=== PATIENT | female | born 1930 | race Caucasian/White ===

== ENCOUNTER 2016-10-12 10:35 | Inpatient (IN) | payer OTHER ==
[~2016-10-12] VITALS: Ht 165.1 cm; Wt 72.6 kg
[~2016-10-12 10:35] MED LIST: AMBIEN5 MG PO; BONIVA150 MG PO; DEPAKOTE ER250 MG PO; DEPAKOTE ER500 MG PO; DEPAKOTE250 MG PO; DESYREL50 MG PO; DIOVAN HCT 12.51 TA1 PO; DIPHENOX/ATROPI1 TAB PO; EFFEXOR PO; EFFEXOR XR75 MG PO; EFFEXOR-XR37.5 MG PO; LASIX20 MG PO; MELATONIN CR3 MG PO; MELATONIN3 MG PO; METOPROLOL SUCC25 M1 PO; PIPERACILLIN IV; PRADAXA150 MG PO; PROAIR HFA0.09 MG/Ac IH; SEROQUEL200 MG PO; TAZOBACTAM IV; TOPROL XL25 MG PO; VENLAFAXINE H37.5 M1 PO; VENLAFAXINE HCL75 M1 PO; VESICARE5 MG PO; ZOLPIDEM TART PO; [UNRECOGNIZED DRUG - REMARK]
--- NOTE | 2016-10-12 10:54 | NUR ---
Patient BIBA to bed 8 at this time.
[2016-10-12 10:55] VITALS: BP 152/64
--- NOTE | 2016-10-12 11:00 | NUR ---
.PT BIB EMS FROM [facility] FOR DIARRHEA AND PAINFUL URINATION.PER EMS PT IS HAVING DIARRHEA FOR 5 DAYS;PT STATES SHE FEELS NAUSEATED BUT DENIES ANY VOMITTING;PT IS AAOX3;SKIN IS INTACT;HX OF CHF,HTN AND ALZHEIMERS DZ;C/O OF CP THAT STATRTED A FEW MINUTES AGO;NO SOB/UNLABORED BREATHING O2 SAT OF 97 %;NO ACUTE DISTRESS NOTED AT THIS TIME;HOB ELEAVTED;NEEDS ATTENDED;SAFETY MEASURES DONE;MD MADE AWARE OF PT'S CONDITION.
[2016-10-12] MEDS ORDERED: DITROPAN5 MG PO (11:08)
[2016-10-12] MEDS ORDERED: EVISTA60 MG PO (11:08)
[2016-10-12] MEDS ORDERED: DESYREL50 MG PO (11:08)
[2016-10-12] MEDS ORDERED: VASOTEC10 MG PO (11:08)
[2016-10-12] MEDS ORDERED: ACCOLATE20 M1 PO (11:08)
[2016-10-12] MEDS ORDERED: CLARITIN10 MG PO (11:08)
[2016-10-12] MEDS ORDERED: NACL 0.9% 500 ML IV SCH (11:22)
[2016-10-12] MEDS ORDERED: LEVOFLOXACIN 750 MG/D5W PREMIX 150 ML IV ONE (11:25)
--- NOTE | 2016-10-12 11:30 | NUR ---
DR PARKER AT BEDSIDE
--- NOTE | 2016-10-12 12:00 | NUR ---
TUYERE FITTER AT BEDSIDE
--- NOTE | 2016-10-12 13:03 | NUR ---
PT LYING ON BED COMFORTABLY;NO ACUTE DISTRESS NOTED AT THIS TIME ;WILL CONTINUE TO MONITOR PT.
--- NOTE | 2016-10-12 13:44 | NUR ---
BACK FROM CT SCAN; NO ACUTE DISTRESS NOTED AT THIS TIME;ALL MONITORS PLACED IN.WILL CONTINUE TO MONITOR PT.
[2016-10-12] MEDS ORDERED: NACL 0.9% 1,000 ML IV ONE (13:45)
[2016-10-12] MEDS ORDERED: ACETAMINOPHEN 325 MG TAB PO PRN (14:20)
[2016-10-12] MEDS: NACL 0.9% 1,000 ML IV SCH (14:20)
[2016-10-12] MEDS ORDERED: MORPHINE SULFATE 2 MG/ML SYR IVP PRN (14:20)
[2016-10-12] MEDS ORDERED: LORazepam 2 MG/ML VIAL IVP PRN (14:20)
[2016-10-12] MEDS ORDERED: ONDANSETRON 4 MG/2 ML VIAL IVP PRN (14:20)
[2016-10-12] MEDS ORDERED: ALBUTEROL 0.083% 2.5 MG/3 ML NEBU INH PRN (14:25)
--- NOTE | 2016-10-12 14:25 | NUR ---
Patient will be admitted to care of DR GUERRA . Admited to M/S. Will go to room 108 B. Belongings list completed. Report to JAYESH TRIPP.
--- NOTE | 2016-10-12 14:33 | NUR ---
US AT BEDSIDE
--- NOTE | 2016-10-12 14:43 | NUR ---
.9 NS I L WAS NOT ADMINISTERED BECAUSE LEVAQUIN IVPB WAS STARTED AT 1220 AND WAS DONE AT 14OO. 5OO ML NS IS STILL INFUSING. I GAVE REPORT TO JAYESH TRIPP IN MS FOR ADMISSION.
--- NOTE | 2016-10-12 15:15 | NUR ---
ADMITTED 85 YEAR OLD FEMALE FROM ER VIA [facility] WITH A DIAGNOSIS OF UTI, DEHYDRATION. PT IS ABLE TO MOVE FROM GURNEY TO BED, AMBULATE WITH THE USE OF WALKER. PT IS AAO X3, ABLE TO RESPOND TO SIMPLE QUESTIONS, O2 2L NC, SKIN INTACT, IV ON RIGHT AC 22G PATENT AND INTACT INFUSING FLUID WELL, VITALS STABLE, NO S/S OF RESPIRATORY DISTRESS OR DISCOMFORT NOTED, ALL NEEDS MET AT THIS TIME, MRSA COLLECTED, ORIENTED PT IN THE ROOM AND USE OF CALL LIGHT, SAFETY/FALL PRECAUTION ENFORCED, CALL LIGHT WITHIN REACH, WILL CONTINUE TO MONITOR.
[2016-10-12 16:00] VITALS: BP 120/60
--- NOTE | 2016-10-12 17:47 | NUR ---
DINNER SERVED, PT HAS GOOD APPETITE, ALL NEEDS MET AT THIS TIME, CALL LIGHT WITHIN REACH, WILL CONTINUE TO MONITOR.
--- NOTE | 2016-10-12 19:21 | NUR ---
ENDORSED PT TO MAHOGANY HOLLOWAY FOR CONTINUITY OF CARE. PT IS STABLE AT THIS TIME.
--- NOTE | 2016-10-12 19:22 | NUR ---
RECD. RESTING IN BED, AWAKE, A/OX3. RESPIRATION EVEN AND UNLABORED. 02 SAT SAT ROOM AIR, 95%. IV OF NS AT 100 ML/HR INFUSING RIGHT AC G.22. SAFETY MEASURES ENFORCED. PLAN OF CARE FOR THE SHIFT DISCUSSED. INSTRUCTED TO CALL NURSE WHEN NEEDING ANYTHING TO PREVENT FALLS. VERBALIZED UNDERSTANDING. DENIES PAIN 0/10.
--- NOTE | 2016-10-12 19:30 | NUR ---
Patient's Plan of Care was discussed and reviewed with DIRECTOR DENTAL SERVICES: JEWEL Aguilar
[2016-10-12] MEDS: DABIGATRAN ETEXILATE MESYLAT 75 MG CAP PO SCH (21:00)
[2016-10-12] MEDS: traZODone 50 MG TAB PO SCH (21:11)
[2016-10-12] MEDS: DIVALPROEX 500 MG TABER PO SCH (21:11)
[2016-10-12] MEDS: OXYBUTYNIN 5 MG TAB PO SCH (21:11)
[2016-10-12] MEDS: QUEtiapine FUMARATE 100 MG TAB PO SCH (21:11)
--- NOTE | 2016-10-12 21:11 | NUR ---
DUE PO MEDICATIONS GIVEN, TOLERATED WELL.
[2016-10-13] VITALS: BP 108/54
--- NOTE | 2016-10-13 | NUR ---
SLEEPING COMFORTABLY IN BED.
[2016-10-13] MEDS: NACL 0.9% 1,000 ML IV SCH ×3 (00:20→20:56)
--- NOTE | 2016-10-13 02:00 | NUR ---
ASSISTED OUT OF BED TO GO SHIMA BSC TO VOID, BACK TO BED AFTER VOIDING. SAFETY MAINTAINED.
--- NOTE | 2016-10-13 04:00 | NUR ---
ASSISTED OUT OF BED TO GO BSC, ASSISTED BY CONTACT CENTER REPRESENTATIVE. BACK TO BED AFTER VOIDING, SAFETY MAINTAINED. NO DIARRHEA NOTED.
--- NOTE | 2016-10-13 05:00 | NUR ---
BILATERAL LEG SEQUENTIALS APPLIED ORDERED.
--- NOTE | 2016-10-13 06:30 | NUR ---
CONDITION REMAIN STABLE. SAFETY MAINTAINED DURING SHIFT. WILL ENDORSE TO AM NURSE FOR CONTINUITY OF CARE.
--- NOTE | 2016-10-13 07:10 | NUR ---
RECEIVED REPORT FROM NIGHT NURSE. PT IS RESTING IN BED. PT IS ON ROOM AIR. PT HAS A 22G IV ON THE RIGHT AC THAT IS PATENT AND INTACT. PT VERBALIZED PAIN AND WILL FOLLOW UP WITH MEDICATION. PT'S BED IS LOWERED WITH CALL LIGHT WITHIN REACH. WILL CONTINUE TO MONITOR.
--- NOTE | 2016-10-13 07:59 | NUR ---
PATIENT HAS BEEN SCREENED AND CATEGORIZED HIGH NUTRITION RISK. PATIENT WILL BE SEEN WITHIN 1-2 DAYS OF ADMISSION. 10/13/16-10/14/[address]
[2016-10-13 08:00] VITALS: BP 128/65
[2016-10-13] MEDS: HYDROcodone/APAP 5/325 MG 1 TAB TAB PO PRN (08:22)
[2016-10-13] MEDS: VALSARTAN 80 MG TAB PO SCH (08:22)
[2016-10-13] MEDS: HYDROCHLOROTHIAZIDE 25 MG TAB PO SCH (08:23)
[2016-10-13] MEDS: VENLAFAXINE 37.5 MG TAB PO SCH (08:23)
[2016-10-13] MEDS: LORATADINE 10 MG TAB PO SCH (08:23)
[2016-10-13] MEDS: METOPROLOL SUCCINATE 50 MG TABER PO SCH (08:23)
[2016-10-13] MEDS: RALOXIFENE 60 MG TAB PO SCH (08:24)
[2016-10-13] MEDS: ENALAPRIL 10 MG TAB PO SCH (08:24)
[2016-10-13] MEDS: OXYBUTYNIN 5 MG TAB PO SCH ×2 (08:24→20:48)
[2016-10-13] MEDS: FUROSEMIDE 20 MG TAB PO SCH (08:25)
[2016-10-13] MEDS ORDERED: NON-FORMULARY ITEM (Venlafaxine HCl* (Effexor Xr*) 1 CAP) PO SCH (09:00)
--- NOTE | 2016-10-13 09:10 | NUR ---
PT VERBALIZED THAT SHE HAS NO DIARRHEA. PT DENIES PAIN. WILL CONTINUE TO MONITOR.
[2016-10-13] MEDS: DABIGATRAN ETEXILATE MESYLAT 75 MG CAP PO SCH ×2 (09:33→20:52)
--- NOTE | 2016-10-13 12:44 | NUR ---
10/13/16 RD INITIAL ASSESSMENT COMPLETED PLEASE REFER TO NUTRITION ASSESSMENT UNDER CARE ACTIVITY FOR ESTIMATED NUTRITIONAL NEEDS. RD RECOMMENDATIONS: 1. CONTINUE CARDIAC DIET TOLERATED PER MD 2. ENCOURAGE ADEQUATE PO INTAKE 3. RD WILL F/U 3-5 DAYS; MODERATE RISK. ALFREDO HERNANDEZ, ROD
[2016-10-13 16:24] VITALS: BP 121/61
--- NOTE | 2016-10-13 19:00 | NUR ---
PT REPORT GIVEN AT BEDSIDE TO NIGHT NURSE. PT ENDORSED IN STABLE CONDITION.
--- NOTE | 2016-10-13 19:30 | NUR ---
RECEIVED REPORT FROM DAY RN AT BEDSIDE, PATIENT IS AAO X4, ON ROOM AIR, NO SOB OR SIGN OF DISTRESS AT THIS TIME, PATIENT HAS IV TO RIGHT AC PATENT AND INTACT. SKIN IS INTACT. PATIENT DENIES PAIN AT THIS TIME. DISCUSSED PLAN OF CARE WITH PATIENT, PATIENT VERBALIZED UNDERSTANDING, SAFETY MEASURES CHECKED, BED ALARM ON , CALL LIGHT WITHIN REACH. WILL CONTINUE TO MONITOR.
[2016-10-13] MEDS: traZODone 50 MG TAB PO SCH (20:47)
[2016-10-13] MEDS: DIVALPROEX 500 MG TABER PO SCH (20:47)
[2016-10-13] MEDS: QUEtiapine FUMARATE 100 MG TAB PO SCH (20:48)
--- NOTE | 2016-10-13 20:57 | NUR ---
PM MEDS ADMINISTERED PATIENT TOLERATED WELL. PATIENT TOOK MEDS WITH APPLESAUCE PER REQUEST, NO SOB OR SIGN OF DISTRESS AT THIS TIME, CALL LIGHT WITHIN REACH. WILL CONTINUE TO MONITOR.
[2016-10-13] MEDS ORDERED: MONTELUKAST SODIUM 10 MG TAB PO SCH (21:00)
[2016-10-14] VITALS: BP 101/56
--- NOTE | 2016-10-14 00:09 | NUR ---
VITAL SIGNS STABLE, NO SOB OR SIGN OF DISTRESS, ASSISTED PATIENT UP TO BEDSIDE COMMODE, CALL LIGHT WITHIN REACH. WILL CONTINUE TO MONITOR.
--- NOTE | 2016-10-14 02:20 | NUR ---
PATIENT SLEEPING, NO SOB OR SIGN OF DISTRESS AT THIS TIME, CALL LIGHT WITHIN REACH. WILL CONTINUE TO MONITOR.
[2016-10-14] MEDS: HYDROcodone/APAP 5/325 MG 1 TAB TAB PO PRN (03:51)
[2016-10-14] MEDS ORDERED: HYDROcodone/APAP 5/325 MG 1 TAB TAB ONE (03:52)
--- NOTE | 2016-10-14 04:09 | NUR ---
PATIENT C/O PAIN IN HER BACK, ADMINISTERED NORCO PER MD ORDER, ASSISTED PATIENT UP TO RESTROOM, CALL LIGHT WITHIN REACH. WILL CONTINUE TO MONITOR.
[2016-10-14] MEDS: NACL 0.9% 1,000 ML IV SCH ×2 (06:24→16:20)
--- NOTE | 2016-10-14 07:03 | NUR ---
RECEIVED REPORT FROM NIGHT NURSE. PT IS RESTING IN BED. PT IS ON ROOM AIR. PT HAS A 22G IV ON THE RIGHT AC THAT IS PATENT AND INTACT. PT VERBALIZED BACK PAIN AND WILL FOLLOW UP WITH MEDICATION. WILL ASSIST PT IN REPOSITIONING. PT'S BED IS LOWERED WITH CALL LIGHT WITHIN REACH. WILL CONTINUE TO MONITOR
--- NOTE | 2016-10-14 07:25 | NUR ---
ENDORSED PATIENT TO DAY RN AT BEDSIDE, PATIENT IN STABLE CONDITION.
[2016-10-14 07:39] VITALS: BP 128/53
--- NOTE | 2016-10-14 08:15 | NUR ---
ADMINISTERED SCHEDULED MEDICATIONS. PT TOLERATED WELL. NO S/S OF DISTRESS NOTED. PT HAS NO C/O PAIN AT THIS TIME. WILL CONTINUE TO MONITOR.
[2016-10-14] MEDS: METOPROLOL SUCCINATE 50 MG TABER PO SCH (08:23)
[2016-10-14] MEDS: LORATADINE 10 MG TAB PO SCH (08:23)
[2016-10-14] MEDS: VALSARTAN 80 MG TAB PO SCH (08:25)
[2016-10-14] MEDS: OXYBUTYNIN 5 MG TAB PO SCH (08:28)
[2016-10-14] MEDS: VENLAFAXINE 37.5 MG TAB PO SCH (08:28)
[2016-10-14] MEDS: FUROSEMIDE 20 MG TAB PO SCH (08:28)
[2016-10-14] MEDS: ENALAPRIL 10 MG TAB PO SCH (08:29)
[2016-10-14] MEDS: HYDROCHLOROTHIAZIDE 25 MG TAB PO SCH (08:30)
[2016-10-14] MEDS: RALOXIFENE 60 MG TAB PO SCH (08:30)
[2016-10-14] MEDS: DABIGATRAN ETEXILATE MESYLAT 75 MG CAP PO SCH (08:41)
--- NOTE | 2016-10-14 09:36 | NUR ---
CM NOTE INITIAL REVIEW SENT ON 10/13 TO [facility] FAX# [phone] PH# KEVIN [phone] AND [facility] FAX# [phone] PH# INES Deng [phone]. CONCURRENT REVIEW SENT TODAY 10/14 TO [facility] FAX# [phone] PH# KEVIN [phone] AND [facility] FAX# [phone] PH# INES Deng [phone].
--- NOTE | 2016-10-14 10:00 | NUR ---
PT AMB TO BEDSIDE COMMODE. PT VOIDED 100 ML OF URINE OUTPUT. PT IS RESTING IN BED. PT WAS TURNED IN BED. PT'S BED IS LOWERED AND CALL LIGHT IS WITHIN REACH. WILL CONTINUE TO MONITOR.
--- NOTE | 2016-10-14 12:20 | NUR ---
PT SEEN BY DR GUERRA. ORDERED PT EVAL.
--- NOTE | 2016-10-14 13:40 | NUR ---
SPOKE WITH PATIENT'S DAUGHTER JAMES AND INFORMED HER THAT PATIENT WILL BE TRANSFERRED BACK TO [facility] TODAY. DAUGHTER WAS ALSO INFORMED THAT THE DOCTOR WILL SEND THE PATIENT'S ABX PRESCRIPTION TO THE PATIENT'S PHARMACY. DAUGHTER STATES THAT SHE CAN GET THE PRESCRIPTION AT [facility] BY [facility].
--- NOTE | 2016-10-14 13:50 | NUR ---
PT IS IN BED RESTING. PT SHOWS NO S/S OF DISTRESS. WILL CONTINUE TO MONITOR.
--- NOTE | 2016-10-14 14:48 | NUR ---
REJI NOTE ORDER FOR HOME HEALTH FOR PHYSICAL THERAPY, ORAL ANTIBIOTIC AND PHYSICAL THERAPY EVAL SENT TO [facility] ATTN: INES LILLY FAX# [phone] PH# [phone]. CALLED REJI CHACON OF [facility] AND LEFT VOICE MAIL X 3. NO CALL BACK
--- NOTE | 2016-10-14 15:30 | NUR ---
PT AMBULATED WITH ASSISTANCE TO THE RESTROOM. PT TOLERATED WELL. WILL CONTINUE TO MONITOR.
--- NOTE | 2016-10-14 15:31 | NUR ---
REJI ACOSTA SPOKE WITH REJI PERSAUD OF [facility] PH# [phone] AND SHE SAID SHE IS APPROVING THE HOME HEALTH FOR PHYSICAL THERAPY AND ORAL ANTIBIOTIC FOR THE PATIENT AND SHE WILL SET IT UP. GAVE HER THE NUMBER TO THE NURSING FLOOR CHARGE NURSE TO CONFIRM THE NAME OF THE HOME HEALTH AND SCHEDULE. SPOKE WITH CHARGE NURSE ALIREZA EXT [phone] AND SHE SAID THAT [facility] IS AWARE THAT PATIENT IS GOING BACK TO THEM TODAY. SET UP PATIENT TRANSPORT WITH [employer] [facility] TRANSPORT GOING TO [facility] OBSTETRICS NURSE TIME 7:30PM TODAY. CHARGE NURSE ALIREZA AWARE. Addendum: 10/14/16 at 1541 by Michelle Graves CM PER [facility] PH# [phone] EXT [phone], PATIENT SET UP WITH [facility] PH# [phone]
[2016-10-14] MEDS ORDERED: CIPRO500 MG PO (15:56)
[2016-10-14 16:00] VITALS: BP 141/72
--- NOTE | 2016-10-14 17:00 | NUR ---
AMBULATED PT TO BEDSIDE COMMODE.
--- NOTE | 2016-10-14 19:05 | NUR ---
ENDORSED CONTINUITY OF CARE TO THE NIGHT NURSE. PATIENT ENDORSED IN STABLE CONDITION
--- NOTE | 2016-10-14 19:20 | NUR ---
RECEIVED REPORT FROM DAY RN AT BEDSIDE, PATIENT IS AWAITING UNIFORMER FOR TRANSPORT TO SNF. PATIENT IS AAOX4 ON ROOM AIR, PATIENT IS GETTING DRESSED TO BE PICKED UP, IV HAS ALREADY BEEN REMOVED, WRIST BANDS CUT OFF, PAPER WORK SIGNED, DISCUSSED PLAN WITH PATIENT AND EXPECTED UNIFORMER TIME, PATIENT VERBALIZED UNDERSTANDING, CALL LIGHT WITHIN REACH. WILL CONTINUE TO MONITOR AND AWAIT FOR TRANSPORT
--- NOTE | 2016-10-14 19:33 | NUR ---
[facility] HERE TO STOCK DRIER TENDER PATIENT, PATIENT HAS ALL BELONGINGS IN POSSESSION, PATIENT IN STABLE CONDITION.
[2016-11-11] MEDS ORDERED: IBANDRONATE SODIUM PO SCH (09:00)
== END 2016-10-14 19:33 | DRG 689 ==
LOC: MED 10:35 → MTU 13:02
PROVIDERS: ADMIT Hospitalist; ATTEND Hospitalist
DX: N10 Acute pyelonephritis (principal); G93.40 Encephalopathy, unspecified; G30.9 Alzheimer's disease, unspecified; F02.80 Dementia in other diseases classified elsewhere, unspecified severity, without behavioral disturbance, psychotic disturbance, mood disturbance, and anxiety; F31.9 Bipolar disorder, unspecified; Z79.01 Long term (current) use of anticoagulants; I10 Essential (primary) hypertension; M81.0 Age-related osteoporosis without current pathological fracture; G40.909 Epilepsy, unspecified, not intractable, without status epilepticus; M19.90 Unspecified osteoarthritis, unspecified site; J44.9 Chronic obstructive pulmonary disease, unspecified; E86.0 Dehydration; Z79.899 Other long term (current) drug therapy

== ENCOUNTER 2017-01-19 14:48 | Emergency (ER) | payer OTHER ==
[~2017-01-19] VITALS: Ht 160 cm; Wt 80.8 kg
[~2017-01-19 14:48] MED LIST changes: +ALBU-136 IH; -AMBIEN5 MG PO; -BONIVA150 MG PO; +CIPR500T4 PO; +DABI150C PO; -DEPAKOTE ER250 MG PO; -DEPAKOTE ER500 MG PO; -DEPAKOTE250 MG PO; -DESYREL50 MG PO; -DIOVAN HCT 12.51 TA1 PO; -DIPHENOX/ATROPI1 TAB PO; +DIT5 PO; +DIVA500T1 PO; -EFFEXOR PO; -EFFEXOR XR75 MG PO; -EFFEXOR-XR37.5 MG PO; +FURO-572 PO; +HYDR1TAB73 PO; +IBAN150T PO; -LASIX20 MG PO; +LORA10TA19 PO; -MELATONIN CR3 MG PO; -MELATONIN3 MG PO; +METO25TE2 PO; -METOPROLOL SUCC25 M1 PO; -PIPERACILLIN IV; -PRADAXA150 MG PO; -PROAIR HFA0.09 MG/Ac IH; +QUET200T PO; +RALO60TA PO; -SEROQUEL200 MG PO; -TAZOBACTAM IV; -TOPROL XL25 MG PO; +TRAZ-286 PO; +VAS10 PO; +VENL37.55 PO; -VENLAFAXINE H37.5 M1 PO; -VENLAFAXINE HCL75 M1 PO; -VESICARE5 MG PO; +ZAFI20TA PO; -ZOLPIDEM TART PO; -[UNRECOGNIZED DRUG - REMARK]
[2017-01-19 15:09] VITALS: BP 141/102
--- NOTE | 2017-01-19 17:35 | NUR ---
Pt observed getting into a taxi.
--- NOTE | 2017-01-19 17:35 | NUR ---
PATIENT LEFT WITHOUT BEING SEEN BY DR. REESE. NO FURTHER CARE PROVIDED FOR PATIENT.
== END 2017-01-19 17:35 | disposition left against medical advice (07) ==
LOC: MED 14:48
DX: R30.9 Painful micturition, unspecified (principal); Z53.21 Procedure and treatment not carried out due to patient leaving prior to being seen by health care provider

== ENCOUNTER 2017-01-29 13:58 | Emergency (ER) | payer OTHER ==
[~2017-01-29] VITALS: Ht 172.7 cm; Wt 81.6 kg
[2017-01-29 14:10] VITALS: BP 110/46
--- NOTE | 2017-01-29 14:10 | NUR ---
Patient BIBA to bed 3 at this time.
--- NOTE | 2017-01-29 14:13 | NUR ---
PATIENT PRESENTS TO ED WITH [facility] WITH ROSENDO SHOULDER PAIN CHRONIC BUT EXACERBATED X2 DAYS . PT STATES . DENIES N/V/D; SKIN IS PINK/WARM/DRY; AAOX4 WITH EVEN AND STEADY GAIT; LUNGS CLEAR BL; HR EVEN AND REGULAR; PT DENIES ANY FEVER, CP, SOB, OR COUGH AT THIS TIME; PATIENT STATES PAIN OF 8/10 AT THIS TIME; VSS; PATIENT POSITIONED FOR COMFORT; HOB ELEVATED; BEDRAILS UP X2; BED DOWN. ER MD MADE AWARE OF PT STATUS.
--- NOTE | 2017-01-29 14:32 | NUR ---
PT TO CT VIA [facility]
--- NOTE | 2017-01-29 14:48 | NUR ---
RETURNED FROM CT---A/O X 4 FULL CLEAR SPEECH---
--- NOTE | 2017-01-29 15:32 | NUR ---
RESTING WITH OU CLOSED, NO GRIMACE NO MOAN--CONTINUES TO WAIT FOR DISPO
--- NOTE | 2017-01-29 16:08 | NUR ---
Patient discharged with v/s stable. Written and verbal after care instructions given and explained. Patient verbalized understanding. Wheel Chair Assisted with to car. All questions addressed prior to discharge. Advised to follow up with PMD.
[2017-01-29 16:09] VITALS: BP 131/65
--- NOTE | 2017-01-29 16:09 | NUR ---
NO ONE FROM PT'S FACILITY CAN PICK HER UP, THEY SAID THEY HAVE NO ONE TO PICK HER UP. SANDBLASTING SUPERVISOR CALLING [employer]. PT AMBULATED TO WHEELCHAIR WITH SLOW STEADY GAIT.
== END 2017-01-29 16:08 | disposition home or self-care (01) ==
LOC: MED 13:58
DX: M54.12 Radiculopathy, cervical region (principal); M51.36 Other intervertebral disc degeneration, lumbar region; J44.9 Chronic obstructive pulmonary disease, unspecified; G30.9 Alzheimer's disease, unspecified; F02.80 Dementia in other diseases classified elsewhere, unspecified severity, without behavioral disturbance, psychotic disturbance, mood disturbance, and anxiety; M19.90 Unspecified osteoarthritis, unspecified site; I10 Essential (primary) hypertension; Z85.9 Personal history of malignant neoplasm, unspecified
CPT/HCPCS: 72125; 99284

== ENCOUNTER 2017-05-30 17:03 | Observation (INO) | payer OTHER ==
[~2017-05-30] VITALS: Ht 167.6 cm; Wt 63.5 kg
[2017-05-30 17:22] VITALS: BP 92/53
--- NOTE | 2017-05-30 17:27 | NUR ---
Patient taken to bed 06 via wheelchair.
--- NOTE | 2017-05-30 17:29 | NUR ---
Dr. orozco evaluating patient at bedside.
[2017-05-30] MEDS ORDERED: NACL 0.9% 1,000 ML IV ONE (17:30)
--- NOTE | 2017-05-30 17:43 | NUR ---
PT TAKEN TO BED 10 VIA RNEY AT THIS TIME.
[2017-05-30 17:56] LABS: BASOPHILS # (AUTO) 0.3 K/uL (0.00-0.22); EOSINOPHILS # (AUTO) 0.2 K/uL (0-0.4); HEMATOCRIT 41.7 % (36-48); HEMOGLOBIN 13.9 g/dL (12.0-16.0); MEAN CORPUSCULAR HEMOGLOBIN 33 pg (27-31); MEAN CORPUSCULAR HGB CONC 33 g/dL (33-37); MEAN CORPUSCULAR VOLUME 99 fL (80-94); MONOCYTES # (AUTO) 0.6 K/uL (0.8-1.0); NEUTROPHILS # (AUTO) 4.4 K/uL (1.8-7.7); PLATELET COUNT (AUTO) 184 K/uL (140-450); RED BLOOD CELL COUNT(AUTO) 4.23 MIL/uL (4.20-5.40); WHITE BLOOD COUNT (AUTO) 6.5 K/uL (4.8-10.8)
--- NOTE | 2017-05-30 18:03 | NUR ---
PT BROUGHT TO ER BY SNF STAFF FOR EVALUATION OF GENERAL WEAKNESS SINCE THIS AM. HX OF HTN, ALZHEIMERS, OA, CHF. . PT STATES "I FEEL WEAK"DENIES N/V/D; SKIN IS PINK/WARM/DRY; AAOX4 WITH EVEN AND STEADY GAIT; LUNGS CLEAR BL; HR EVEN AND REGULAR; PT DENIES ANY FEVER, CP, SOB, OR COUGH AT THIS TIME; PATIENT STATES PAIN OF 0/10 AT THIS TIME;PATIENT POSITIONED FOR COMFORT; HOB ELEVATED; BEDRAILS UP X2; BED DOWN. ALL MONITORS IN PLACED;ER MD MADE AWARE OF PT STATUS.
[2017-05-30 18:10] LABS: PROTHROMBIN TIME 18.9 secs (10.8-13.4)
[2017-05-30 18:13] LABS: ALBUMIN 3.1 g/dL (3.4-5.0); ANION GAP 10.3 (8-16); ASPARTATE AMINOTRANSFERASE 15 U/L (15-37); CHLORIDE 104 mmol/L (98-107); CREATININE 1.6 mg/dL (0.6-1.3); GLUCOSE 178 mg/dL (74-106); POTASSIUM 4.3 mmol/L (3.5-5.1); SODIUM SERUM 142 mmol/L (136-145); TOTAL BILIRUBIN 0.4 mg/dL (0.0-1.0); UREA NITROGEN, BLOOD 41 mg/dL (7-18)
[2017-05-30] MEDS ORDERED: NACL 0.9% 500 ML IV ONE (18:25)
--- NOTE | 2017-05-30 18:34 | NUR ---
PT REFUSED TO BE STRAIGHT CATH;PT STATES SHE WILL GO LATER;
--- NOTE | 2017-05-30 18:45 | NUR ---
WENT TO CT SCAN ACCOMPANIED BY TECH.
--- NOTE | 2017-05-30 19:05 | NUR ---
Pt returned from CT via gurney and placed in bed 10.
--- NOTE | 2017-05-30 19:08 | NUR ---
Pt report given to JAYESH GRACE. Transfer of care at this time.
--- NOTE | 2017-05-30 19:09 | NUR ---
Pt resting comfortably in bed. VSS. IV fluids infusing, pt tolerating well. Comfort needs met.
--- NOTE | 2017-05-30 20:02 | NUR ---
PT MOVED TO BED 3
--- NOTE | 2017-05-30 21:51 | NUR ---
24 G IV REMOVED, 22 G PLACED IN LEFT AC 1 ATTEMPT @9035
[2017-05-30 21:55] LABS: APPEARANCE,URINE CLEAR (CLEAR); BILIRUBIN,URINE NEGATIVE (NEGATIVE); BLOOD, URINE NEGATIVE (NEGATIVE); COLOR,URINE YELLOW (YELLOW); LEUKOCYTE ESTERASE ,URINE NEGATIVE (NEGATIVE); NITRITE, URINE NEGATIVE (NEGATIVE); UGLUCOSE NEGATIVE (NEGATIVE)
[2017-05-30] MEDS ORDERED: ONDANSETRON 4 MG/2 ML VIAL IVP PRN (22:10)
[2017-05-30] MEDS ORDERED: MORPHINE SULFATE 2 MG/ML SYR IVP PRN (22:10)
[2017-05-30 23:00] VITALS: BP 141/74
[2017-05-30] MEDS: NACL 0.9% 1,000 ML IV SCH (23:00)
--- NOTE | 2017-05-30 23:00 | NUR ---
ADMITTED A 86F FROM ER. CAME BY THUAN DUE TO DEHYDRATION. AWAKE,ALERT AND ORIENTED X4, BUT WITH PERIODS OF FORGETFULNESS. MED SURG PT. AMBULATORY WITH ASSISTANCE. WITH NO C/O ANY DISCOMFORT NOR PAIN NOTED. HAS IVF INFUSING WELL ON THE LT AC#22. CLEAR AND PATENT. SKIN INTACT. ONLY DRY SKIN ON THE LOWER EXTREMITIES. SLIGHT SWELLING 1+ ON BLE. ORIENTED TO HOSPITAL ROUTINES. BED ON LOW POSITION, BED ALARM ON. CALL LIGHT PLACED WITHIN EASY REACH. FREQUENT ROUNDS NEEDED. WILL CONTINUE TO MONITOR.
--- NOTE | 2017-05-30 23:03 | NUR ---
Patient will be admitted to care of DR MCCURDY. Admited to M/S. Will go to room 11-B. Belongings list completed. Report to SANJAY.
--- NOTE | 2017-05-30 23:03 | NUR ---
N.S 500ML BAG AND NS 1L BAG STILL INFUSING WILL FINISH FLUIDS ON M.S FLOOR
--- NOTE | 2017-05-30 23:30 | NUR ---
HAD SOME SANDWICH AND JUICE. TOLERATED WELL.
--- NOTE | 2017-05-31 02:00 | NUR ---
MADE ROUNDS. PT IS ASLEEP. NO S/S OF ANY DISCOMFORT NOR PAIN NOTED.
[2017-05-31 05:08] VITALS: BP 129/58
--- NOTE | 2017-05-31 05:21 | NUR ---
PAGED DR. MCCURDY FOR PT WANTS PO MEDS FOR PAIN. CALLED BACK WITH ORDERS. ALSO HE WAS MADE AWARE OF THE ABNORMAL PT,INR AND PTT RESULT OF PT. HE SAID DR. BEE RESENDIZ TO SEE PT TODAY TO TAKE CARE OF THIS.
[2017-05-31] MEDS ORDERED: HYDROcodone/APAP 5/325 MG 1 TAB TAB PO PRN (05:25)
[2017-05-31 07:41] LABS: RED BLOOD CELL COUNT(AUTO) 3.72 MIL/uL (4.20-5.40); WHITE BLOOD COUNT (AUTO) 6.7 K/uL (4.8-10.8)
[2017-05-31 07:42] LABS: BASOPHILS % (AUTO) 0.2 % (0.0-2.0); HEMATOCRIT 36.1 % (36-48); HEMOGLOBIN 12.4 g/dL (12.0-16.0); LYMPHOCYTES # (AUTO) 1.6 K/uL (2.5-16.5); LYMPHOCYTES % (AUTO) 23.1 % (20.5-51.1); MEAN CORPUSCULAR HEMOGLOBIN 33 pg (27-31); MEAN CORPUSCULAR HGB CONC 34 g/dL (33-37); MEAN CORPUSCULAR VOLUME 97 fL (80-94); MONOCYTES # (AUTO) 0.6 K/uL (0.8-1.0); MONOCYTES % (AUTO) 9.4 % (1.7-9.3); NEUTROPHILS # (AUTO) 4.4 K/uL (1.8-7.7); NEUTROPHILS % (AUTO) 65.3 % (42.2-75.2); PLATELET COUNT (AUTO) 140 K/uL (140-450); RED CELL DISTRIBUTION WIDTH 12.8 % (11.6-13.7)
[2017-05-31 07:43] LABS: ALBUMIN 2.6 g/dL (3.4-5.0); ANION GAP 11.3 (8-16); ASPARTATE AMINOTRANSFERASE 14 U/L (15-37); CARBON DIOXIDE 28.5 mmol/L (21-32); CHLORIDE 109 mmol/L (98-107); CREATININE 1.2 mg/dL (0.6-1.3); EOSINOPHILS # (AUTO) 0.1 K/uL (0-0.4); GLUCOSE 116 mg/dL (74-106); POTASSIUM 3.8 mmol/L (3.5-5.1); SODIUM SERUM 145 mmol/L (136-145); TOTAL BILIRUBIN 0.5 mg/dL (0.0-1.0); UREA NITROGEN, BLOOD 39 mg/dL (7-18)
[2017-05-31 08:00] VITALS: BP 125/56
[2017-05-31] MEDS ORDERED: NON-FORMULARY ITEM (Albuterol Sulfate Hfa* (Proair Hfa*) 2 PUFF) IH PRN (08:00)
--- NOTE | 2017-05-31 08:00 | NUR ---
RECEIVED REPORT FROM SANJAY RN FOR CONTINUITY OF CARE. PATIENT AWAKE A/OX4 NO S/S OF RESP DISTRESS NOTED ABLE TO MAKE NEEDS KNOWN . IV SITE LEFT AC GAUGE 20 INTACT AND PATENT IVF INFUSING WELL. PLAN OF CARE DISCUSSED WITH THE PATIENT VITALS STABLE WILL CONTINUE TO MONITOR.
[2017-05-31] MEDS: NACL 0.9% 1,000 ML IV SCH (08:09)
--- NOTE | 2017-05-31 08:25 | NUR ---
PATIENT HAS BEEN SCREENED AND CATEGORIZED MODERATE NUTRITION RISK. PATIENT WILL BE SEEN WITHIN 3-5 DAYS OF ADMISSION. 06/02/17-06/04/[address]
[2017-05-31] MEDS ORDERED: HYDROCHLOROTHIAZIDE PO SCH (09:00)
[2017-05-31] MEDS ORDERED: LORATADINE 10 MG TAB PO SCH (09:00)
[2017-05-31] MEDS ORDERED: FUROSEMIDE 20 MG TAB PO SCH (09:00)
[2017-05-31] MEDS ORDERED: OXYBUTYNIN 5 MG TAB PO SCH (09:00)
[2017-05-31] MEDS ORDERED: IBANDRONATE SODIUM PO SCH (09:00)
[2017-05-31] MEDS ORDERED: DABIGATRAN ETEXILATE MESYLAT 75 MG CAP PO SCH (09:00)
[2017-05-31] MEDS ORDERED: ENALAPRIL 10 MG TAB PO SCH (09:00)
[2017-05-31] MEDS ORDERED: METOPROLOL SUCCINATE 50 MG TABER PO SCH (09:00)
[2017-05-31] MEDS ORDERED: RALOXIFENE 60 MG TAB PO SCH (09:00)
[2017-05-31] MEDS ORDERED: NON-FORMULARY ITEM (Venlafaxine HCl* (Effexor Xr*) 1 CAP) PO SCH (09:00)
[2017-05-31] MEDS ORDERED: VALSARTAN PO SCH (09:00)
[2017-05-31] MEDS ORDERED: ZAFIRLUKAST 20 MG PO SCH (09:00)
--- NOTE | 2017-05-31 09:00 | NUR ---
DR RESENDIZ VISITED PATIENT NEW ORDER CARRIED OUT.
--- NOTE | 2017-05-31 09:30 | NUR ---
DUE MEDS GIVEN TOLERATED WELL , AMBULATE WITH PT TOLERATED WELL
[2017-05-31] MEDS ORDERED: ALBUTEROL 0.083% 2.5 MG/3 ML NEBU INH PRN (10:00)
[2017-05-31 12:02] VITALS: BP 130/74
--- NOTE | 2017-05-31 13:02 | NUR ---
SPOKE WITH IGNACIA AT [facility] AND INFORMED HER THAT PT WILL DISCHARGE HOME TODAY AND PER PT RECOMMENDATION WILL HAVE HOME PHYSICAL THERAPY. PER IGNACIA THEY CAN PICK THE PT UP AT 2PM. IGNACIA WILL CALL PT'S DAUGHTER JAMES TO INFORM HER THAT PT WILL DISCHARGE HOME.
--- NOTE | 2017-05-31 13:31 | NUR ---
CALL PLACED TO CORI MENDOZA AT [facility] AND INFORMED HER OF PT DC TODAY AND HH ORDER. ORDER FAXED TO [phone] AND PER CORI WILL INPUT AN AUTH IN THE SYSTEM AND CALL BACK TO VERIFY HH AGENCY TO PROVIDE SERVICE. CORI CALL BACK IS [phone] X [phone]
--- NOTE | 2017-05-31 14:11 | NUR ---
RECEIVED REPORT FROM JAYESH MULLEN, PT LYING IN BED ON RA, PT DENIES PAIN, NO S/S OF ACUTE DISTRESS, CALL LIGHT WITHIN REACH, WILL CONT TO MONITOR.
--- NOTE | 2017-05-31 14:11 | NUR ---
ENDORSE THE CARE TO PAVEL
--- NOTE | 2017-05-31 15:17 | NUR ---
1500 CALL FROM CORI AT [facility] AND AUTH# FOR [facility] IS [id number]. [address] [facility] AND SPOKE WITH TRINA AND INFORMED HER OF REFERRAL AND INFORMATION FAXED TO [phone] AND PHONE [phone].
--- NOTE | 2017-05-31 15:40 | NUR ---
PT READY FOR DISCHARGE, IV TAKEN OUT AND TIP INTACT, PT WHEEL OUT VIA WHEELCHAIR, PULLMAN CAR REPAIRER FROM FACILITY TRANSPORTING, PT STABLE CONDITION.
[2017-05-31] MEDS ORDERED: traZODone 50 MG TAB PO SCH (21:00)
[2017-05-31] MEDS ORDERED: DIVALPROEX 500 MG TABER PO SCH (21:00)
[2017-05-31] MEDS ORDERED: QUEtiapine FUMARATE 25 MG TAB PO SCH (21:00)
[2017-06-01] MEDS ORDERED: VALSARTAN 80 MG TAB PO SCH (09:00)
[2017-06-01] MEDS ORDERED: VENLAFAXINE 37.5 MG TAB PO SCH (09:00)
[2017-06-01] MEDS ORDERED: HYDROCHLOROTHIAZIDE 25 MG TAB PO SCH (09:00)
== END 2017-05-31 15:30 | disposition home health service (06) ==
LOC: MED 17:03 → MMU 22:14 → MTU 22:22
PROVIDERS: ADMIT Internal Medicine Pulmonary Disease; ATTEND Internal Medicine Pulmonary Disease
DX: R53.1 Weakness (principal); E86.0 Dehydration; R79.89 Other specified abnormal findings of blood chemistry; R47.9 Unspecified speech disturbances; I10 Essential (primary) hypertension; G03.9 Meningitis, unspecified; J44.9 Chronic obstructive pulmonary disease, unspecified; F31.9 Bipolar disorder, unspecified; M19.90 Unspecified osteoarthritis, unspecified site
CPT/HCPCS: 36415; 70450; 71010; 80053; 81003; 83605; 83735; 83880; 84100; 84484; 85025; 85610; 85730; 87040; 87081; 87086; 93005; 96360; 96361; 97110; 97162; 99285; G0378; J7030; Q0092